=== PATIENT | male | born 2005 | race Hispanic/Latino ===

== ENCOUNTER 2024-04-14 20:13 | Emergency (ER) | payer OTHER ==
[~2024-04-14] VITALS: Ht 157.5 cm; Wt 63.0 kg
[2024-04-14 22:29] VITALS: BP 140/87
== END 2024-04-14 22:30 | disposition home or self-care (01) | DRG 156 ==
LOC: ED 20:13
PROC: 0HQ3XZZ Repair Left Ear Skin, External Approach (ICD-10-PCS; principal; 2024-04-14)
DX: S01.312A Laceration without foreign body of left ear, initial encounter (principal); V86.55XA Driver of 3- or 4- wheeled all-terrain vehicle (ATV) injured in nontraffic accident, initial encounter; Y99.0 Civilian activity done for income or pay